=== PATIENT | male | born 1995 | race Two or more races ===

== ENCOUNTER 2016-08-29 02:08 | Emergency (ER) | payer OTHER ==
--- NOTE | 2016-08-29 02:33 | ER Document Report ---
ED Psych Disorder / Suicide - General Stated Complaint: SUICIDAL IDEATION Time seen by provider: 02:30 Mode of Arrival: Ambulatory Information source: Patient TRAVEL OUTSIDE OF THE [place] IN LAST 30 DAYS: No - HPI Patient complains to provider of: Suicidal ideation Onset: Just prior to arrival Onset was: Cannot confirm Quality of pain: No pain Suicide Risk Factors: Male, Substance abuse Normal mood: No Associated symptoms: Depressed, Flat affect Similar symptoms previously: Yes Recently seen / treated by doctor: No Notes: Patient is a 21-year-old male with a reported history of depression presents to the emergency room complaining of feeling depressed, increased alcohol intake over the past few days, states he feels emotional and has thought about cutting himself, he denies any specific reason for feeling depressed at the present time , states he's also been having some trouble sleeping, is not currently in any type of mental health treatment, although he states he has been seen in this emergency room for depression in the past and he did not follow-up as an outpatient - Related Data Allergies/Adverse Reactions: No Known Allergies Allergy (Unverified 09/28/11 12:22) Past Medical History - General Information source: Patient - Social History Smoking Status: Never Smoker Frequency of alcohol use: Occasional Family History: Reviewed & Not Pertinent Pulmonary Medical History: Reports: Hx Asthma Psychiatric Medical History: Reports: Hx Depression - Immunizations Immunizations up to date: Yes Hx Diphtheria, Pertussis, Tetanus Vaccination: - <10 yrs Review of Systems - Review of Systems Constitutional: No symptoms reported EENT: No symptoms reported Cardiovascular: No symptoms reported Respiratory: No symptoms reported Gastrointestinal: No symptoms reported Genitourinary: No symptoms reported Male Genitourinary: No symptoms reported Musculoskeletal: No symptoms reported Skin: No symptoms reported Hematologic/Lymphatic: No symptoms reported Neurological/Psychological: See HPI -: Yes All other systems reviewed and negative Physical Exam - Vital signs Interpretation: Hypertensive - General General appearance: Appears well, Alert In distress: None - HEENT Head: Normocephalic, Atraumatic Eyes: Normal Conjunctiva: Normal Extraocular movements intact: Yes Eyelashes: Normal Pupils: PERRL - Respiratory Respiratory status: No respiratory distress - Cardiovascular Rhythm: Regular - Abdominal Inspection: Normal - Back Back: Normal, Nontender - Extremities General upper extremity: Normal inspection, Nontender, Normal color, Normal ROM , Normal temperature General lower extremity: Normal inspection, Nontender, Normal color, Normal ROM , Normal temperature, Normal weight bearing. No: Sosa's sign - Neurological Neuro grossly intact: Yes Cognition: Normal Orientation: AAOx4 [place] Coma Scale Eye Opening: Spontaneous [place] Coma Scale Verbal: Oriented [place] Coma Scale Motor: Obeys Commands [place] Coma Scale Total: 15 Speech: Normal Motor strength normal: LUE, RUE, LLE, RLE Sensory: Normal - Psychological Associated symptoms: Depressed, Flat affect - Skin Skin Temperature: Warm Skin Moisture: Dry Skin Color: Normal Course - Re-evaluation Re-evalutation: 08/29/16 02:32 Patient is calm and cooperative, states he had some thoughts about cutting himself but has no real intention on acting on them, he is requesting assistance for his depression, since he has been cooperative and has no real plan for suicide patient will remain in the emergency room as a voluntary, pending evaluation by the mental health team in the morning for further recommendations Discharge - Discharge Clinical Impression: Suicidal ideation Depression Qualifiers: Depression Type: unspecified Qualified Code(s): F32.9 - Major depressive disorder, single episode, unspecified Condition: Stable Disposition: PSYCH HOSP/UNIT
[2016-08-29 02:53] LABS: ABSOLUTE EOSINOPHILS # (AUTO) 0.8 10^3/uL (0.0-0.6); ABSOLUTE LYMPHOCYTES (AUTO) 2.4 10^3/uL (0.5-4.7); ABSOLUTE MONOCYTES (AUTO) 0.6 10^3/uL (0.1-1.4); ABSOLUTE NEUT (AUTO) 10.7 10^3/uL (1.7-8.2); BASOPHILS % (AUTO) 0.3 % (0-2); EOSINOPHILS % (AUTO) 5.7 % (0-6); HEMATOCRIT 48.7 % (37.9-51.0); HEMOGLOBIN 16.1 g/dL (13.5-17.0); HGB HCT DIFFERENCE -0.4; LYMPHOCYTES % (AUTO) 16.3 % (13-45); MEAN CORPUSCULAR HEMOGLOBIN 28.8 pg (27.0-33.4); MEAN CORPUSCULAR HGB CONC 33.1 g/dL (32.0-36.0); MEAN CORPUSCULAR VOLUME 87 fl (80-97); MONOCYTES % (AUTO) 4.3 % (3-13); RED CELL DISTRIBUTION WIDTH 12.8 % (11.5-14.0); SEGMENTED NEUTROPHILS % (AUTO) 73.4 % (42-78); WHITE BLOOD COUNT 14.6 10^3/uL (4.0-10.5)
[2016-08-29 03:13] LABS: ALANINE AMINOTRANSFERASE 35 U/L (21-72); ALBUMIN 4.5 g/dL (3.5-5.0); ALKALINE PHOSPHATASE 88 U/L (38-126); ANION GAP 15 (5-19); ASPARTATE AMINO TRANSFERASE 21 U/L (17-59); BILIRUBIN,TOTAL 0.6 mg/dL (0.2-1.3); BLOOD UREA NITROGEN 14 mg/dL (7-20); CALCIUM 9.9 mg/dL (8.4-10.2); CARBON DIOXIDE 25 mmol/L (22-30); CHLORIDE 102 mmol/L (98-107); CREATININE RESULT 0.82 mg/dL (0.52-1.25); GLUCOSE 75 mg/dL (75-110); POTASSIUM 3.7 mmol/L (3.6-5.0); SODIUM 141.9 mmol/L (137-145); TOTAL PROTEIN 7.6 g/dL (6.3-8.2)
[2016-08-29 03:15] LABS: ALCOHOL < 10 mg/dL (NONE DETECTED)
[2016-08-29 03:49] LABS: APPEARANCE,URINE CLEAR; BILIRUBIN,URINE NEGATIVE (NEGATIVE); GLUCOSE, URINE NEGATIVE (NEGATIVE); KETONES,URINE NEGATIVE (NEGATIVE); LEUKOCYTE ESTERASE,URINE TRACE (NEGATIVE); NITRITE,URINE NEGATIVE (NEGATIVE); PROTEIN,URINE NEGATIVE (NEGATIVE); URINE SPECIFIC GRAVITY 1.013; UROBILINOGEN,URINE NEGATIVE mg/dL (<2.0)
[2016-08-29 03:53] LABS: URINE BARBITURATES SCREEN NEGATIVE; URINE METHADONE SCREEN NEGATIVE; URINE PHENCYCLIDINE SCREEN NEGATIVE
--- NOTE | 2016-08-29 08:23 | EKG REPORT ---
SEVERITY:- ABNORMAL ECG - SINUS RHYTHM INCOMPLETE RIGHT BUNDLE BRANCH BLOCK : Confirmed by: Jey Johnson MD 29-Aug-2016 08:22:52
--- NOTE | 2016-08-29 10:42 | ER Document Report ---
Doctor's Note Notes: 08/29/16 10:41 Rounds: Chart reviewed and patient interviewed. Patient is being evaluated for depression and suicidal thoughts, although he did not feel that he was going to act on his thoughts. Has no history of previous psychiatric care. Vital signs are all normal. Lab work is normal with the exception of a leukocytosis of 14, 900. Patient has no signs of any infections anywhere. Patient appears to be medically stable for transfer or discharge. Darshan العراقي M.D.
[2016-08-29 11:23] VITALS: BP 160/80
--- NOTE | 2016-08-29 11:27 | PSYCHOLOGICAL NOTE ---
Psych Note - Psych Note Psych Note: Patient is a 21 year old male who presented voluntarily overnight via EMS for thoughts of harming himself by cutting/stabbing. Patient acknowledged consuming alcohol yesterday; however, toxicology was clear for all substances. Patient was held overnight for further evaluation. Patient this morning states he has been stressed out due to not being allowed to see his child, due to discord with the child's mother. He states he has been anxious and sad and not sleeping properly. Patient states yesterday after work he attempted to discuss with his girlfriend his feelings, but she was not supportive and did would not listen. He states he drank a 40oz beer, and started having thoughts of harming himself and when he disclosed this to his girlfriend, she called 911. Patient states at that time, he wanted a way out of this life, but denies feeling this way this morning. Patient states he does have his brother who lives locally; however he was unable to call him last night while upset due to not having phone service. Patient states normally, that is who he would reach out to. Note , patient was treated in this Department in April 2015 for a similar episode , was started on medications, and discharged the following day with the instructions to follow up with a provider (an appt was scheduled on patient's behalf). Patient states he did go to the initial appointment, but was not able to afford to continue. Patient denies current suicidal ideations, intent, plan , or means. Patient denies any prior suicide attempts or inpatient psychiatric hospitalizations. Patient provided consent to speak with his brother and or mother. Patient encouraged to call his brother and ask for his support. Patient's girlfriend later presented with her mother and states she is not concerned for his safety and is agreeable to encourage him to follow up with outpatient services. Girlfriend reports she is in agreement with the plan of care and reports no concerns. Patient is A&Ox4. Mood is euthymic with normal affect. Patient denies suicidal /homicidal ideations, intent, plan, or means. Patient denies A/V H; delusions not noted. Thought processes were organized. Conversational speech was soft for prosody. Intellectual abilities were estimated within average range. Attention and focus werefair. Insight, judgment, and impulse control were poor. 311 (F32.9) Unspecified Depressive Disorder Patient reports an increase of sadness, worthlessness and suicidal ideations. Patient reports that these symptoms have gotten worse over time. Due to the ED , there is insufficient information to be able to develop a more specific diagnosis Patient is psychiatrically cleared for discharge and is encouraged to follow up with an outpatient provider of his choice. Patient was provided resources to do so. Patient encouraged to prioritize his mental health and follow up. Patient denies wanting to harm himself or anyone else. Patient reports he feels safe today and would like to return home. Patient has no prior attempts at harming himself. Patient additionally encouraged to abstain from ETOH. I consulted with Dr. Richardson in regards to the care and management of this patient ED MD is in agreement with disposition and recommendations.
== END 2016-08-29 11:35 | disposition home or self-care (01) ==
LOC: ER 02:08
DX: F32.9 Major depressive disorder, single episode, unspecified (principal); R45.851 Suicidal ideations; D72.829 Elevated white blood cell count, unspecified; I45.10 Unspecified right bundle-branch block; J45.909 Unspecified asthma, uncomplicated
CPT/HCPCS: 36415; 80053; 80307; 81001; 85025; 93005; 93010; 99285

== ENCOUNTER 2016-09-23 00:46 | Emergency (ER) | payer OTHER ==
[2016-09-23] MEDS ORDERED: LORAZEPAM 1 MG TABLET PO ONE (02:09)
--- NOTE | 2016-09-23 02:12 | ER Document Report ---
ED General - General Chief Complaint: Psych Problem Stated Complaint: DEPRESSION/SUICIDAL TENDENCIES Notes: Patient is a 21-year-old male with past medical history of depression and several visits to the emergency department for suicidal ideation who presents with thoughts of wanting to harm himself. States he got into an argument with his girlfriend tonight and that made him feel very depressed. States he decided to take a knife and place it to his neck and did threaten to harm himself to a shell worker. States that he did this because he wanted a way to express his depression and all he really wanted was to be able to talk to somebody. At the time of my evaluation the patient denies any ongoing suicidal ideation, desire to harm himself or others. States that his symptoms are often worsened by conflict or things not going well in his life. When he was on antidepressants he states that his symptoms were completely resolved. He denies any acute medical complaint. Denies any drug or alcohol use tonight. TRAVEL OUTSIDE OF THE [place] IN LAST 30 DAYS: No - Related Data Allergies/Adverse Reactions: No Known Allergies Allergy (Unverified 09/28/11 12:22) Past Medical History - General Information source: Patient - Social History Smoking Status: Never Smoker Frequency of alcohol use: None Drug Abuse: None Lives with: Spouse/Significant other Family History: Reviewed & Not Pertinent Patient has suicidal ideation: Yes Patient has homicidal ideation: No Pulmonary Medical History: Reports: Hx Asthma Renal/ Medical History: Denies: Hx Peritoneal Dialysis Psychiatric Medical History: Reports: Hx Depression - Immunizations Immunizations up to date: Yes Hx Diphtheria, Pertussis, Tetanus Vaccination: - <10 yrs Review of Systems - Review of Systems Notes: Constitutional: Negative for fever. HENT: Negative for sore throat. Eyes: Negative for visual changes. Cardiovascular: Negative for chest pain. Respiratory: Negative for shortness of breath. Gastrointestinal: Negative for abdominal pain, vomiting or diarrhea. Genitourinary: Negative for dysuria. Musculoskeletal: Negative for back pain. Skin: Negative for rash. Neurological: Negative for headaches, weakness or numbness. 10 point ROS negative except as marked above and in HPI. Physical Exam - Vital signs Vitals: Temp Pulse Resp BP Pulse Ox 97.7 F 82 17 153/98 H 96 09/23/16 00:59 09/23/16 00:59 09/23/16 00:59 09/23/16 00:59 09/23/16 00:59 Interpretation: Hypertensive Notes: PHYSICAL EXAMINATION: GENERAL: Well-appearing, well-nourished and in no acute distress. HEAD: Atraumatic, normocephalic. EYES: Pupils equal round and reactive to light, extraocular movements intact, sclera anicteric, conjunctiva are normal. ENT: nares patent, oropharynx clear without exudates. Moist mucous membranes. NECK: Normal range of motion, supple without lymphadenopathy LUNGS: Breath sounds clear to auscultation bilaterally and equal. No wheezes rales or rhonchi. HEART: Regular rate and rhythm without murmurs ABDOMEN: Soft, nontender, normoactive bowel sounds. No guarding, no rebound. No masses appreciated. EXTREMITIES: Normal range of motion, no pitting or edema. No cyanosis. NEUROLOGICAL: No focal neurological deficits. Moves all extremities spontaneously and on command. PSYCH: Normal mood, normal affect. SKIN: Warm, Dry, normal turgor, no rashes or lesions noted. Course - Re-evaluation Re-evalutation: 09/23/16 02:10 Patient presents with suicidal ideation and depression and was found by police holding a knife to his neck. Patient states to me that he did not have actual intention of killing himself but holding the knife to his neck gave him an outlet for how depressed he felt. At this time he denies any acute suicidal ideation. States he felt much improved when he was on medication for depression and insomnia but stopped these medications when he was feeling better. Denies any substance ingestions tonight. Patient has [facility] and see psychiat[facility] in the morning. I do not believe he meets IVC criteria at this time. Medical screening labs and exam are unremarkable. He is cleared for evaluation by psychiatry. - Vital Signs Vital signs: Temp Pulse Resp BP Pulse Ox 97.7 F 82 17 153/98 H 96 09/23/16 00:59 09/23/16 00:59 09/23/16 00:59 09/23/16 00:59 09/23/16 00:59 Discharge - Discharge Clinical Impression: Suicidal ideation Condition: Good Disposition: PSYCH HOSP/UNIT
[2016-09-23 03:01] LABS: ABSOLUTE BASOPHILS # (AUTO) 0.1 10^3/uL (0.0-0.2); ABSOLUTE EOSINOPHILS # (AUTO) 0.5 10^3/uL (0.0-0.6); ABSOLUTE LYMPHOCYTES (AUTO) 2.4 10^3/uL (0.5-4.7); ABSOLUTE MONOCYTES (AUTO) 0.6 10^3/uL (0.1-1.4); ABSOLUTE NEUT (AUTO) 10.5 10^3/uL (1.7-8.2); BASOPHILS % (AUTO) 0.4 % (0-2); EOSINOPHILS % (AUTO) 3.3 % (0-6); HEMOGLOBIN 15.9 g/dL (13.5-17.0); HGB HCT DIFFERENCE 0.7; LYMPHOCYTES % (AUTO) 17.4 % (13-45); MEAN CORPUSCULAR HEMOGLOBIN 29.3 pg (27.0-33.4); MEAN CORPUSCULAR HGB CONC 33.7 g/dL (32.0-36.0); MEAN CORPUSCULAR VOLUME 87 fl (80-97); MONOCYTES % (AUTO) 4.1 % (3-13); RED BLOOD COUNT 5.42 10^6/uL (4.35-5.55); RED CELL DISTRIBUTION WIDTH 13.2 % (11.5-14.0); SEGMENTED NEUTROPHILS % (AUTO) 74.8 % (42-78)
[2016-09-23 03:09] LABS: APPEARANCE,URINE CLEAR; BILIRUBIN,URINE NEGATIVE (NEGATIVE); GLUCOSE, URINE NEGATIVE (NEGATIVE); KETONES,URINE NEGATIVE (NEGATIVE); LEUKOCYTE ESTERASE,URINE NEGATIVE (NEGATIVE); NITRITE,URINE NEGATIVE (NEGATIVE); PROTEIN,URINE NEGATIVE (NEGATIVE); URINE SPECIFIC GRAVITY 1.023; UROBILINOGEN,URINE NEGATIVE mg/dL (<2.0)
[2016-09-23 03:19] LABS: ALANINE AMINOTRANSFERASE 35 U/L (21-72); ALBUMIN 4.5 g/dL (3.5-5.0); ALKALINE PHOSPHATASE 92 U/L (38-126); ANION GAP 15 (5-19); ASPARTATE AMINO TRANSFERASE 18 U/L (17-59); BLOOD UREA NITROGEN 12 mg/dL (7-20); CALCIUM 9.9 mg/dL (8.4-10.2); CARBON DIOXIDE 23 mmol/L (22-30); CHLORIDE 103 mmol/L (98-107); CREATININE RESULT 0.86 mg/dL (0.52-1.25); GLUCOSE 92 mg/dL (75-110); POTASSIUM 4.3 mmol/L (3.6-5.0); TOTAL PROTEIN 8.4 g/dL (6.3-8.2)
[2016-09-23 03:20] LABS: ALCOHOL < 10 mg/dL (NONE DETECTED)
[2016-09-23 04:53] LABS: URINE BARBITURATES SCREEN NEGATIVE; URINE METHADONE SCREEN NEGATIVE; URINE OPIATES LOW NEGATIVE; URINE PHENCYCLIDINE SCREEN NEGATIVE
--- NOTE | 2016-09-23 08:24 | EKG REPORT ---
SEVERITY:- ABNORMAL ECG - SINUS RHYTHM NONSPECIFIC INTRAVENTRICULAR CONDUCTION DELAY : Confirmed by: Jey Johnson MD 23-Sep-2016 08:22:59
--- NOTE | 2016-09-23 08:56 | PSYCHOLOGICAL NOTE ---
Psych Note - Psych Note Psych Note: Patient presented to [facility] ED with past medical history of depression and several visits to the emergency department for suicidal ideation who presents with thoughts of wanting to harm himself. States he got into an argument with his girlfriend asim and that made him feel very depressed. States he decided to take a knife and place it to his neck and did threaten to harm himself to a asphalt plant worker. States that he did this because he wanted a way to express his depression and all he really wanted was to be able to talk to somebody. Patient disclosed he had a fight with his girlfriend last night. He continued to disclose that sometimes he "can't control my emotions." Stating his mind races and he is unable to get much sleep, as he thinks too much, disclosing gets approximately 3-4 hours a day. He stated that last night he had a knife throat called the crisis line; stating "I just wanted someone to talk to." The asphalt plant worker called [employer] found him with a knife to his throat. Clinician notes there are no rojas for bruises visible on patient's neck. He states he has not seen anyone out in the community for outpatient services however first time he came to [facility] ED he did go to [facility] for the initial appointment. He continued to disclose he did not take his medication or continue with services because he felt better and thought he didn't need. Second time the patient came to [facility] ED he states that he did not follow up with outpatient services because he "forgot and got busy." Patient now states he understands he will have to take his medication and go to therapy even when he feels that; "when I start to feel better on the medicine is working taking." Patient's girlfriend, Gita [phone], left message on her voicemail. Patient is alert and orientated to person place time and circumstance. Mood is euthymic with congruent affect. Patient denies suicidal intent and states he only thinks about it is depressed after a fight. Patient denies homicidal ideation patient denies auditory or visual hallucinations; no delusions are noted. Thought process is logical organized and linear. Conversational speech was within normal rate, tone and prosody. Eye contact was well maintained area intellectual abilities appear to be average range. Attention and concentration are fair. Insight, judgment, impulse control are fair 311 (F32.9) Unspecified Depressive Disorder Patient reports an increase of sadness, worthlessness and suicidal ideations. Patient reports that these symptoms have gotten worse over time. Due to the ED , there is insufficient information to be able to develop a more specific diagnosis Impression\\plan: Patient is psychiatrically cleared for discharge. Patient states that has had a history of noncompliance with follow-up determined to commit medication and therapy this time. Patient is recommended to return to [facility] he started establishing services. Patient is psychiatrically cleared for discharge. Dr. Richardson was consulted and care and management of this patient. Attending physician is in agreement with recommendations and disposition.
--- NOTE | 2016-09-23 10:00 | ER Document Report ---
Doctor's Note Notes: 09/23/16 09:59 I have evaluated this pt. this am and he has no c/o at this time. He feels all of his needs are being met and his physical exam is normal. He is awaiting disposition per mental health.
[2016-09-23 11:42] VITALS: BP 135/75
== END 2016-09-23 11:40 | disposition home or self-care (01) ==
LOC: ER 00:46
DX: F32.9 Major depressive disorder, single episode, unspecified (principal); R45.851 Suicidal ideations; J45.909 Unspecified asthma, uncomplicated
CPT/HCPCS: 36415; 80053; 80307; 81001; 85025; 93005; 93010; 99285